=== PATIENT | male | born 1940 | race Caucasian/White ===

== ENCOUNTER → 2017-01-06 | Day surgery (SDC) | payer MEDICARE ==
[2017-01-02 09:00] VITALS: BMI 34.2
[~2017-01-06] MED LIST: LACTATED RINGERS 1,000 ML IV ONE; LACTATED RINGERS 1,000 ML IV SCH; MIDAZOLAM 2 MG/2 ML VIAL ONE; PROPOFOL 10 MG/ML 20 ML VIAL IV ONE; fentaNYL (PF) 50 MCG/ML 2 ML AMP ONE
[2017-01-06 07:17] VITALS: RESP 18; TEMP 96.9
[2017-01-06 07:27] LABS: Glucose,Whole Blood 96 mg/dL (75-99)
--- NOTE | 2017-01-06 09:16 | P.PCN ---
Date of Procedure: 01/06/17 Procedure(s) Performed: Procedures: 1. Esophagogastroduodenoscopy and biopsy. 2. Total colonoscopy. 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 Postoperative diagnosis: 1. Long segment of Carey's esophagus. 2. Diverticulosis of the colon. Preparation: HalfLytely prep. Sedation: Was provided by anesthesia. Brief clinical history: The patient is a 76-year-old male who had cecal cancer diagnosed in 2002 for which he underwent surgery and chemotherapy and has had surveillance colonoscopies since that time. He also has history of Carey's esophagus. His last colonoscopy was in December 2013 and his last upper endoscopy was in April 2012. At this time, the patient has no abdominal complaints, bleeding or anemia. Procedure: With the patient on his left lateral decubitus position and after informed consent and adequate sedation, I passed the Olympus-GIF 160 video upper endoscope through the cricopharyngeus down the esophagus. The morro-GE junction started at around 26 cm from the incisors and the tubular esophagus continued for around 10 cm then we encounter a sliding hiatal hernia around 2 cm in size. The endoscope was then passed into the stomach which was insufflated with air and inspected in detail including the retroflex view in the cardia. No obvious abnormalities were seen in the stomach. Pyloric channel , duodenal bulb, post bulbar area and descending duodenum appeared within normal limits. I obtained multiple biopsies in the Carey's segment at 2 different levels in 4 quadrants each then the endoscope was withdrawn and I proceeded with the colonoscopy. The perianal area was inspected and did not show any fissures or fistulas. There were no masses felt on digital rectal examination. The Olympus CFQ 160L video colonoscope was then inserted in the rectum in the usual fashion and advanced to the anastomotic site on the right side. There were several diverticular orifices scattered along the length of the bowel but there was no evidence of acute diverticulitis or strictures. The mucosa appeared healthy. No polyps tumors or local recurrence noted. I retroflexed the endoscope in the rectum then the endoscope was withdrawn. The patient tolerated the procedure well. Plan: The patient was reassured. He will follow up with you as planned. I anticipate repeating his upper endoscopy in 2-3 years and his colonoscopy in around 5 years.
[2017-01-06 09:54] VITALS: BP 134/71; PULSE 56
== END ==
LOC: ORWHC2ENDO 07:02
DX: Z12.11 Encounter for screening for malignant neoplasm of colon (principal); Z85.038 Personal history of other malignant neoplasm of large intestine; Z92.21 Personal history of antineoplastic chemotherapy; K22.70 Barrett's esophagus without dysplasia; K57.30 Diverticulosis of large intestine without perforation or abscess without bleeding; K44.9 Diaphragmatic hernia without obstruction or gangrene; Z90.49 Acquired absence of other specified parts of digestive tract; E78.5 Hyperlipidemia, unspecified; I10 Essential (primary) hypertension; E07.9 Disorder of thyroid, unspecified; E11.9 Type 2 diabetes mellitus without complications; Z85.850 Personal history of malignant neoplasm of thyroid; Z79.84 Long term (current) use of oral hypoglycemic drugs; Z79.82 Long term (current) use of aspirin; Z79.899 Other long term (current) drug therapy
CPT/HCPCS: 88305; 43239; J2250; J3010; J2704; G0105; 45378

== ENCOUNTER 2025-01-08 17:01 | Emergency (ER) | payer MEDICARE ==
--- NOTE | 2025-01-08 17:30 | XR ---
EXAMINATION TYPE: XR chest 1V portable DATE OF EXAM: 01/08/2025 5:25 PM COMPARISON: None available. CLINICAL INDICATION: Male, 84 years old with history of altered mental status; [facility] TECHNIQUE: XR chest 1V portable Frontal view of the chest. FINDINGS: Lungs/Pleura: There is no evidence of pleural effusion, focal consolidation, or pneumothorax. Appare nt consolidation in the right lung apex most likely be positional related. Pulmonary vascularity: Unremarkable. Heart/mediastinum: Cardiomegaly. Loop recorder device noted. Musculoskeletal: No acute osseous pathology. Other findings: None IMPRESSION: No acute cardiopulmonary disease/process. [facility], , 01/08/2025 5:27 PM
[2025-01-08 17:33] LABS: Glucose,Whole Blood 68 mg/dL (70-110)
[2025-01-08 17:34] LABS: VBG PH 7.3 (7.31-7.41)
[2025-01-08 17:34] LABS: INR 1.2 (<1.2); Partial Thromboplastin Time 26.4 sec (22.0-30.0)
[2025-01-08 17:37] LABS: Glucose,Whole Blood 69 mg/dL (70-110)
[2025-01-08 17:38] LABS: African American GFR (CKD) >90 (>60 ml/min/1.73 sqM); Anion Gap 9 mmol/L; Blood Urea Nitrogen 48 mg/dL (9-20); Carbon Dioxide 20 mmol/L (22-30); Chloride 102 mmol/L (98-107); Glucose 63 mg/dL (74-99); Non-African American GFR(CKD) 79 (>60 ml/min/1.73 sqM); Potassium 3.9 mmol/L (3.5-5.1); Sodium 131 mmol/L (137-145)
[2025-01-08 17:39] LABS: ALT 37 U/L (4-49); AST 48 U/L (17-59); Alkaline Phosphatase 137 U/L (38-126); Total Bilirubin 0.5 mg/dL (0.2-1.3); Total Protein 4.3 g/dL (6.3-8.2)
[2025-01-08] MEDS: DEXTROSE 50% SYRINGE 50 ML IVP STA ×2 (17:42→17:43)
--- NOTE | 2025-01-08 17:47 | ED ---
General Adult HPI - General Chief complaint: Altered Mental Status Stated complaint: AMS Time Seen by Provider: 01/08/25 17:04 Source: patient, EMS, RN notes reviewed, old records reviewed Mode of arrival: EMS Limitations: no limitations - History of Present Illness Initial comments: 6-year-old male presenting with altered mental status. Patient had been last seen normal around 8 AM. [facility]ing at approximately 5 PM [facility]. Paramedics report that the patient was nonresponsive to sternal rub. He was noted to have pinpoint pupils and was given Narcan although there is no history of opiate medication. Patient was able to awake at the time of movement from the crowd controller stretcher to the [facility]. Patient is aware he is in the hospital and has no specific complaint. Further history will be obtained when family arrives. - Related Data Home Medications Medication Instructions Recorded Confirmed Aspirin 81 mg PO DAILY 12/31/13 01/08/25 Fenofibrate [Tricor] 160 mg PO HS 12/31/13 01/08/25 Losartan Potassium [Cozaar] 100 mg PO DAILY 12/31/13 01/08/25 0.9 % Sodium Chloride [Sodium 10 ml IV Q8H 01/08/25 01/08/25 Chloride Flush] Amiodarone [Cordarone] 200 mg PO DAILY 01/08/25 01/08/25 Cyanocobalamin [Vitamin B-12] 1,000 mcg PO DAILY 01/08/25 01/08/25 Docusate [Colace] 100 mg PO BID 01/08/25 01/08/25 Empagliflozin [Jardiance] 10 mg PO DAILY 01/08/25 01/08/25 Insulin Lispro [humaLOG Kwikpen] See Protocol SQ QID 01/08/25 01/08/25 Ipratropium-Albuterol Nebulize 3 ml INHALATION RT-QID 01/08/25 01/08/25 [Duoneb 0.5 mg-3 mg/3 ml Soln] Lactobacillus Acidophilus 1 cap PO DAILY 01/08/25 01/08/25 [Acidophilus Probiotic] Vancomycin Oral Solution 125 mg PO Q6HR 01/08/25 01/08/25 [Vancomycin HCl Oral Soln] Allergies Allergy/AdvReac Type Severity Reaction Status Date / Time No Known Allergies Allergy Verified 01/08/25 18:26 Review of Systems ROS Statement: Those systems with pertinent positive or pertinent negative responses have been documented in the HPI. ROS Other: All systems not noted in ROS Statement are negative. Past Medical History Past Medical History: Cancer, Diabetes Mellitus, Hyperlipidemia, Hypertension, Thyroid Disorder Additional Past Medical History / Comment(s): past hx colon, thyroid cancer, has cold S/S, hx skin cancer History of Any Multi-Drug Resistant Organisms: C-DIFF Date of last positivie culture/infection: 01/05/2025 MDRO Source:: stool Past Surgical History: Bowel Resection, Hernia Repair, Joint Replacement Additional Past Surgical History / Comment(s): GRABIEL KNEE REPLACEMENTS. partial thyroidectomy, grabiel cataracts Past Anesthesia/Blood Transfusion Reactions: No Reported Reaction Past Psychological History: No Psychological Hx Reported Past Alcohol Use History: None Reported Past Drug Use History: None Reported - Past Family History Mother Family Medical History: No Reported History General Exam Limitations: no limitations General appearance: alert, in no apparent distress Head exam: Present: atraumatic, normocephalic Eye exam: Present: normal appearance, PERRL ENT exam: Present: mucous membranes dry Neck exam: Present: normal inspection. Absent: tenderness, meningismus Respiratory exam: Present: rhonchi. Absent: respiratory distress, wheezes Cardiovascular Exam: Present: regular rate, normal rhythm GI/Abdominal exam: Present: soft. Absent: distended, tenderness Extremities exam: Present: normal inspection, normal capillary refill Neurological exam: Present: alert, oriented X3, CN II-XII intact. Absent: motor sensory deficit Psychiatric exam: Present: normal affect, normal mood Skin exam: Present: warm, dry, intact Course Vital Signs 01/08/25 01/08/25 17:05 18:58 Temperature 97.8 F Pulse Rate 60 50 L Respiratory 14 18 Rate Blood Pressure 104/54 105/59 O2 Sat by Pulse 100 94 L Oximetry Medical Decision Making - Medical Decision Making Was pt. sent in by a medical professional or institution (, PA, COLLABORATIVE TEACHER, urgent care, hospital, or prison...) When possible be specific @ -[No] Did you speak to anyone other than the patient for history (EMS, parent, family, police, friend...)? What history was obtained from this source @Patient's and daughter Did you review nursing and triage notes (agree or disagree)? Why? @ -[I reviewed and agree with nursing and triage notes] Were old charts reviewed (outside hosp., previous admission, EMS record, old EKG, old radiological studies, urgent care reports/EKG's, prison records)? Report findings @ -[No old charts were reviewed] Differential Altered Mental Status: Hypoglycemia, DKA, hypercapnia, ETOH, overdose, CO poisoning, trauma, myxedema coma, HTN encephalopathy, infection, encephalitis, psychosis, intercranial hemorrhage, hepatic encephalopathy, meningitis, CVA, this is not meant to be an all-inclusive list EKG interpreted by me (3pts min.). @ -[Sinus bradycardia with a first-degree AV block rate of 52 right bundle branch block, AR interval 212, QRS duration 165, QTc is prolonged at 554. X-rays interpreted by me (1pt min.). @Chest x-ray is negative for acute cardiopulmonary findings CT interpreted by me (1pt min.). @ -[None done] U/S interpreted by me (1pt. min.). @ -[None done] What testing was considered but not performed or refused? (CT, X-rays, U/S, labs)? Why? @ -[None] What meds were considered but not given or refused? Why? @ -[None] Did you discuss the management of the patient with other professionals (professionals i.e. , PA, COLLABORATIVE TEACHER, lab, RT, psych nurse, neonatal social worker, tennis instructor, teacher, security officers and guards, case hardener)? Give summary @ -[No] Was smoking cessation discussed for >3mins.? @ -[No] Was critical care preformed (if so, how long)? @ -[No] Were there social determinants of health that impacted care today? How? (Homelessness, low income, unemployed, alcoholism, drug addiction, transportation, low edu. Level, literacy, decrease access to med. care, group home, rehab)? @ -[No] Was there de-escalation of care discussed even if they declined (Discuss DNR or withdrawal of care, Hospice)? DNR status @ -[No] What co-morbidities impacted this encounter? (DM, HTN, Smoking, COPD, CAD, Cancer, CVA, ARF, Chemo, Hep., AIDS, mental health diagnosis, sleep apnea, mor bid obesity)? @C. difficile, debility Was patient admitted / discharged? Hospital course, mention meds given and route, prescriptions, significant lab abnormalities, going to OR and other pertinent info. @ -84-year-old male presenting from the prison with altered mental status. Patient found to be hypoglycemic and family admits that he did not eat today. He has had a steady decline over the past month. He has not ambulated in several days. Patient is at baseline after initial evaluation and glucose. Patient blood sugars monitored throughout his stay in the emergency department and does stabilize. He is able to eat in the emergency department. His lab tests are abnormal but stable from recent. His white blood cell count is downtrending. Albumin is low at 2.0 which is chronic. Urinalysis negative for infection. Undiagnosed new problem with uncertain prognosis? @ -[No] Drug Therapy requiring intensive monitoring for toxicity (Heparin, Nitro, Insulin, Cardizem)? @ -[No] Were any procedures done? @ -[No] Diagnosis/symptom? @ -[default] Acute, or Chronic, or Acute on Chronic? @ -[default] Uncomplicated (without systemic symptoms) or Complicated (systemic symptoms)? @ -[default] Side effects of treatment? @ -[No] Exacerbation, Progression, or Severe Exacerbation? @ -[No] Poses a threat to life or bodily function? How? (Chest pain, [place], [place], pneumonia, PE, COPD, DKA, ARF, appy, cholecystitis, CVA, Diverticulitis, Homicidal, Suicidal, threat to staff... and all critical care pts) @ -[No] - Lab Data Result diagrams: 01/08/25 17:20 01/08/25 17:20 Lab Results 01/08/25 01/08/25 01/08/25 Range/Units 17:20 17:20 17:20 WBC 13.69 H (4.50-10.00) 10*3/uL RBC 3.54 L (4.40-5.60) 10*6/uL Hgb 10.3 L (13.0-17.0) g/dL Hct 30.2 L (39.6-50.0) % MCV 85.3 (80.0-97.0) fL MCH 29.1 (27.0-32.0) pg MCHC 34.1 (32.0-37.0) g/dL Plt Count 276 (140-440) 10*3/uL MPV 10.5 (9.5-12.2) fL Immature Gran % (Auto) 12.1 % Neutrophils % (Manual) 80 % Band Neuts % (Manual) 6 % Lymphocytes % (Manual) 2 % Monocytes % (Manual) 4 % Metamyelocytes % 4 % Myelocytes % 5 % Immature Gran # 1.66 H (0.00-0.04) 10*3/uL Neutrophils # (Manual) 11.77 H (1.3-7.7) k/uL Lymphocytes # (Manual) 0.27 L (1.0-4.8) k/uL Monocytes # (Manual) 0.55 (0-1.0) k/uL Metamyelocytes # (Man) 0.55 H (0) k/uL Myelocytes # (Manual) 0.68 H (0) k/uL Nucleated RBCs 0 (0-0) /100 WBC Manual Slide Review Performed Poikilocytosis (manual Present Anisocytosis (manual) Present PT 13.0 H (10.0-12.5) sec INR 1.2 H (<1.2) APTT 26.4 (22.0-30.0) sec VBG pH (7.31-7.41) VBG pCO2 (37-51) mmHg VBG HCO3 (24-28) mmol/L Sodium (137-145) mmol/L Potassium (3.5-5.1) mmol/L Chloride (98-107) mmol/L Carbon Dioxide (22-30) mmol/L Anion Gap mmol/L BUN (9-20) mg/dL Creatinine (0.66-1.25) mg/dL Est GFR (CKD-EPI)AfAm (>60 ml/min/1.73 sqM) Est GFR (CKD-EPI)NonAf (>60 ml/min/1.73 sqM) Glucose (74-99) mg/dL POC Glucose (mg/dL) (70-110) mg/dL POC Glu Bone [employer] Tender ID Plasma Lactic Acid Tommy (0.7-2.0) mmol/L Calcium (8.4-10.2) mg/dL Total Bilirubin (0.2-1.3) mg/dL AST (17-59) U/L ALT (4-49) U/L Alkaline Phosphatase (38-126) U/L Total Protein (6.3-8.2) g/dL Albumin (3.5-5.0) g/dL Urine Color Yellow Urine Appearance Clear (Clear) Urine pH 5.0 (5.0-8.0) Ur Specific [place] 1.015 (1.001-1.035) Urine Protein Negative (Negative) Urine Glucose (UA) 4+ H (Negative) Urine Ketones Negative (Negative) Urine Blood Negative (Negative) Urine Nitrite Negative (Negative) Urine Bilirubin Negative (Negative) Urine Urobilinogen <2.0 (<2.0) mg/dL Ur Leukocyte Esterase Negative (Negative) 01/08/25 01/08/25 01/08/25 Range/Units 17:20 17:20 17:29 WBC (4.50-10.00) 10*3/uL RBC (4.40-5.60) 10*6/uL Hgb (13.0-17.0) g/dL Hct (39.6-50.0) % MCV (80.0-97.0) fL MCH (27.0-32.0) pg MCHC (32.0-37.0) g/dL Plt Count (140-440) 10*3/uL MPV (9.5-12.2) fL Immature Gran % (Auto) % Neutrophils % (Manual) % Band Neuts % (Manual) % Lymphocytes % (Manual) % Monocytes % (Manual) % Metamyelocytes % % Myelocytes % % Immature Gran # (0.00-0.04) 10*3/uL Neutrophils # (Manual) (1.3-7.7) k/uL Lymphocytes # (Manual) (1.0-4.8) k/uL Monocytes # (Manual) (0-1.0) k/uL Metamyelocytes # (Man) (0) k/uL Myelocytes # (Manual) (0) k/uL Nucleated RBCs (0-0) /100 WBC Manual Slide Review Poikilocytosis (manual Anisocytosis (manual) PT (10.0-12.5) sec INR (<1.2) APTT (22.0-30.0) sec VBG pH 7.30 L (7.31-7.41) VBG pCO2 43 (37-51) mmHg VBG HCO3 21 L (24-28) mmol/L Sodium 131 L (137-145) mmol/L Potassium 3.9 (3.5-5.1) mmol/L Chloride 102 (98-107) mmol/L Carbon Dioxide 20 L (22-30) mmol/L Anion Gap 9 mmol/L BUN 48 H (9-20) mg/dL Creatinine 0.84 (0.66-1.25) mg/dL Est GFR (CKD-EPI)AfAm >90 (>60 ml/min/1.73 sqM) Est GFR (CKD-EPI)NonAf 79 (>60 ml/min/1.73 sqM) Glucose 63 L (74-99) mg/dL POC Glucose (mg/dL) (70-110) mg/dL POC Glu Bone Char [employer] Tender ID Plasma Lactic Acid Tommy 0.8 (0.7-2.0) mmol/L Calcium 8.0 L (8.4-10.2) mg/dL Total Bilirubin 0.5 (0.2-1.3) mg/dL AST 48 (17-59) U/L ALT 37 (4-49) U/L Alkaline Phosphatase 137 H (38-126) U/L Total Protein 4.3 L (6.3-8.2) g/dL Albumin 2.0 L (3.5-5.0) g/dL Urine Color Urine Appearance (Clear) Urine pH (5.0-8.0) Ur Specific [place] (1.001-1.035) Urine Protein (Negative) Urine Glucose (UA) (Negative) Urine Ketones (Negative) Urine Blood (Negative) Urine Nitrite (Negative) Urine Bilirubin (Negative) Urine Urobilinogen (<2.0) mg/dL Ur Leukocyte Esterase (Negative) 01/08/25 01/08/25 01/08/25 Range/Units 17:31 17:34 18:38 WBC (4.50-10.00) 10*3/uL RBC (4.40-5.60) 10*6/uL Hgb (13.0-17.0) g/dL Hct (39.6-50.0) % MCV (80.0-97.0) fL MCH (27.0-32.0) pg MCHC (32.0-37.0) g/dL Plt Count (140-440) 10*3/uL MPV (9.5-12.2) fL Immature Gran % (Auto) % Neutrophils % (Manual) % Band Neuts % (Manual) % Lymphocytes % (Manual) % Monocytes % (Manual) % Metamyelocytes % % Myelocytes % % Immature Gran # (0.00-0.04) 10*3/uL Neutrophils # (Manual) (1.3-7.7) k/uL Lymphocytes # (Manual) (1.0-4.8) k/uL Monocytes # (Manual) (0-1.0) k/uL Metamyelocytes # (Man) (0) k/uL Myelocytes # (Manual) (0) k/uL Nucleated RBCs (0-0) /100 WBC Manual Slide Review Poikilocytosis (manual Anisocytosis (manual) PT (10.0-12.5) sec INR (<1.2) APTT (22.0-30.0) sec VBG pH (7.31-7.41) VBG pCO2 (37-51) mmHg VBG HCO3 (24-28) mmol/L Sodium (137-145) mmol/L Potassium (3.5-5.1) mmol/L Chloride (98-107) mmol/L Carbon Dioxide (22-30) mmol/L Anion Gap mmol/L BUN (9-20) mg/dL Creatinine (0.66-1.25) mg/dL Est GFR (CKD-EPI)AfAm (>60 ml/min/1.73 sqM) Est GFR (CKD-EPI)NonAf (>60 ml/min/1.73 sqM) Glucose (74-99) mg/dL POC Glucose (mg/dL) 68 L 69 L 128 H (70-110) mg/dL POC Glu Bone Char [employer]n Tender ID [facility] Plasma Lactic Acid Tommy (0.7-2.0) mmol/L Calcium (8.4-10.2) mg/dL Total Bilirubin (0.2-1.3) mg/dL AST (17-59) U/L ALT (4-49) U/L Alkaline Phosphatase (38-126) U/L Total Protein (6.3-8.2) g/dL Albumin (3.5-5.0) g/dL Urine Color Urine Appearance (Clear) Urine pH (5.0-8.0) Ur Specific [place] (1.001-1.035) Urine Protein (Negative) Urine Glucose (UA) (Negative) Urine Ketones (Negative) Urine Blood (Negative) Urine Nitrite (Negative) Urine Bilirubin (Negative) Urine Urobilinogen (<2.0) mg/dL Ur Leukocyte Esterase (Negative) Disposition Clinical Impression: Altered mental status, Hypoglycemia Disposition: HOME SELF-CARE Condition: Fair Instructions (If sedation given, give patient instructions): Hypoglycemia in a Person with Diabetes (ED) Additional Instructions: Please monitor blood glucose, please eat regular meals. Is patient prescribed a controlled substance at d/c from ED?: No Referrals: Sigifredo Lind MD [Primary Care Provider] - 1-2 days Time of Disposition: 19:08
[2025-01-08 17:55] LABS: HCT 30.2 % (39.6-50.0); HGB 10.3 g/dL (13.0-17.0); MCH 29.1 pg (27.0-32.0); MCHC 34.1 g/dL (32.0-37.0); MCV 85.3 fL (80.0-97.0); Mean Platelet Volume 10.5 fL (9.5-12.2); Platelet Count 276 10*3/uL (140-440); RBC 3.54 10*6/uL (4.40-5.60); RDW 18.3 % (11.5-14.5); WBC 13.69 10*3/uL (4.50-10.00)
[2025-01-08 18:22] LABS: Band Neutrophils % 6 %; Lymphocytes # (M) 0.27 k/uL (1.0-4.8); Metamyelocytes # (M) 0.55 k/uL (0); Metamyelocytes % 4 %; Monocytes # (M) 0.55 k/uL (0-1.0); Myelocytes # (M) 0.68 k/uL (0); Myelocytes % 5 %; Neutrophils # (M) 11.77 k/uL (1.3-7.7); Neutrophils % (M) 80 %; Nucleated Red Blood Cells 0 /100 WBC (0-0); Total Cells Counted 200
[2025-01-08 18:23] LABS: Anisocytosis (M) Present; Poikilocytosis (M) Present
[2025-01-08 18:40] LABS: Glucose,Whole Blood 128 mg/dL (70-110)
[2025-01-08 18:58] LABS: Appearance,Urine Clear (Clear); Bilirubin,Urine Negative (Negative); Blood,Urine Negative (Negative); Color,Urine Yellow; Glucose,Urine (UA) 4+ (Negative); Ketones,Urine Negative (Negative); Leukocyte Esterase,Urine Negative (Negative); Nitrite,Urine Negative (Negative); Protein,Urine Negative (Negative); Specific Gravity,Urine 1.015 (1.001-1.035); Urobilinogen,Urine <2.0 mg/dL (<2.0)
[2025-01-08 18:59] VITALS: RESP 18
[2025-01-08 19:11] LABS: Amphetamine Screen,Urine Not Detected (NotDetected); Barbiturate Screen,Urine Not Detected (NotDetected); Benzodiazepines Screen,Urine Not Detected (NotDetected); Cocaine Screen,Urine Not Detected (NotDetected); Methadone Screen, Urine Not Detected (NotDetected); Opiate Screen,Urine Not Detected (NotDetected); Oxycodone Screen, Urine Not Detected (NotDetected); Phencyclidine Screen,Urine Not Detected (NotDetected); Tricyclic Antidepressant,Urine Not Detected (NotDetected); Urn Cannabinoid Scrn Not Detected (NotDetected)
[2025-01-08 20:01] LABS: Glucose,Whole Blood 133 mg/dL (70-110)
[2025-01-08 21:26] LABS: Glucose,Whole Blood 123 mg/dL (70-110)
[2025-01-08 21:42] VITALS: BP 109/52; PULSE 50; TEMP 98.4
== END 2025-01-08 21:43 | disposition home or self-care (01) ==
LOC: EC 17:01
DX: R41.82 Altered mental status, unspecified (principal); E11.649 Type 2 diabetes mellitus with hypoglycemia without coma; R53.81 Other malaise; A04.9 Bacterial intestinal infection, unspecified
CPT/HCPCS: 36415; 71045; 80053; 80306; 81003; 82803; 83605; 85025; 85610; 85730; 93005; 96374; 99285